=== PATIENT | female | born 1965 | race Caucasian/White ===

== ENCOUNTER → 2020-05-14 | Outpatient (CLI) | payer OTHER ==
[~2020-05-14] MED LIST: GADOBUTROL 7.5 MMOL/7.5 ML (GADAVIST) VIAL IV ONE
--- NOTE | 2020-05-14 10:10 | Diagnostic Imaging Report ---
PROCEDURE: MR imaging of the brain with and without contrast. TECHNIQUE: Multiplanar, multisequence MR imaging of the brain was performed with and without contrast. INDICATION: Dizziness. No relevant comparison. FINDINGS: There are no foci of abnormal diffusion restriction. No findings of an acute or subacute ischemic infarct. No hemorrhage or abnormal extra-axial fluid collections. No focal or generalized zones of edema. No evidence for an elevated intracerebral pressure. No suspicious white matter pathology. Few very minimal scattered subcortical white matter foci are nonspecific and may reflect very mild changes of small vessel disease. There is no cerebellopontine angle mass or mass effect. The 7th and 8th cranial nerve complexes and the semicircular canals unremarkable. There is normal enhancement of the major dural venous sinuses. The orbits and paranasal sinuses nonacute. IMPRESSION: This is an unremarkable MRI brain and IACs with and without contrast. Dictated by: Dictated on workstation # [id number]
== END ==
LOC: RAD 08:08
PROVIDERS: ATTEND Otolaryngology Otolaryngology/Facial Plastic Surgery
DX: H81.20 Vestibular neuronitis, unspecified ear (principal); E87.8 Other disorders of electrolyte and fluid balance, not elsewhere classified
CPT/HCPCS: 70553

== ENCOUNTER 2021-12-11 10:11 | Outpatient (CLI) | payer OTHER ==
[~2021-12-11] VITALS: Ht 162.6 cm; Wt 70.4 kg
[2021-12-11] MEDS ORDERED: EST30C VG (12:51)
[2021-12-11] MEDS ORDERED: ESTR1TAB50 PO (12:51)
[2021-12-11] MEDS ORDERED: ALEN70TA80 PO (12:51)
== END 2021-12-11 13:01 | disposition home or self-care (01) ==
LOC: PREOP 10:11
PROVIDERS: ATTEND Surgery
DX: Z01.818 Encounter for other preprocedural examination (principal)

== ENCOUNTER 2021-12-18 11:28 | Day surgery (SDC) | payer OTHER ==
[~2021-12-18] VITALS: Ht 162.6 cm; Wt 70.4 kg
[2021-12-18] VITALS (8 sets, daily range): BP systolic 72–118; BP diastolic 46–88
[~2021-12-18 11:28] MED LIST changes: +ALEN70TA80 PO; +EST30C VG; +ESTR1TAB50 PO; -GADOBUTROL 7.5 MMOL/7.5 ML (GADAVIST) VIAL IV ONE
[2021-12-18] MEDS ORDERED: LACTATED RINGERS 1,000 ML IV STA (11:32)
[2021-12-18] MEDS ORDERED: LIDOCAINE JELLY 2% 6 ML SYRINGE MM PRN (11:45)
--- NOTE | 2021-12-18 12:18 | Progress Note-Pre Operative ---
Pre-Operative Progress Note Date of Available H&P: Dec 18, 2021 Date H&P Reviewed: Dec 18, 2021 Time H&P Reviewed: 11:45 History & Physical: No changes noted Pre-Operative Diagnosis: dysphagia HUDSON PEÑALOZA MD Dec 18, 2021 12:18
--- NOTE | 2021-12-18 12:19 | Discharge Inst-Surgical ---
D/C Lap Instructions-ANABELA Follow Up Activity as tolerated High Fiber Diet 25g or more per day Avoid Alcohol, Caffeine, Spicy [place] and Acid foods. Drink 64 fluid oz or more of fluids per day. Symptoms to Report: Fever over 101 degree F, Nausea/Vomiting If any problems/questions: Contact your physician or go to Emergency Room HUDSON PEÑALOZA MD Dec 18, 2021 12:19
[2021-12-18] MEDS ORDERED: ONDANSETRON 4 MG (ZOFRAN) ORAL DISSOLVE TAB PO PRN (12:30)
[2021-12-18] MEDS ORDERED: ONDANSETRON 4 MG/2 ML (SDV) Z0FRAN IVP PRN (12:30)
[2021-12-18] MEDS ORDERED: PROPOFOL INJECTION 50 ML IV ONE (13:44)
[2021-12-18] MEDS ORDERED: MIDAZOLAM 2 MG/2 ML (VERSED) VIAL ONE (13:44)
--- NOTE | 2021-12-18 14:25 | Anesthesia-General Post-Op ---
MAC Patient Condition Mental Status/LOC: Same as Preop Cardiovascular: Satisfactory Nausea/Vomiting: Absent Respiratory: Satisfactory Pain: Controlled Complications: Absent Post Op Complications Complications None Follow Up Care/Instructions Patient Instructions None needed. Anesthesiology Discharge Order Discharge Order Patient is doing well, no complaints, stable vital signs, no apparent adverse anesthesia problems. No complications reported per nursing. LEVI ARRIAGA CRNA Dec 18, 2021 14:25
--- NOTE | 2021-12-18 15:10 | OPERATIVE REPORT ---
DATE OF SERVICE: 12/18/2021 ATTENDING PRIMARY CARE PHYSICIAN: Saadia Kothari DO PREOPERATIVE DIAGNOSIS: Screening colonoscopy. POSTOPERATIVE DIAGNOSES: Mild chronic stage II external and internal hemorrhoids. PROCEDURE: Colonoscopy. SURGEON: Hudson Peñaloza MD. ANESTHESIA: Monitored anesthesia care. ESTIMATED BLOOD LOSS: Minimal. FINDINGS: Mild chronic stage II external and internal hemorrhoids. DISPOSITION: The patient tolerated the procedure well. INDICATIONS: The patient is a 56-year-old female referred over to us for screening colonoscopy. She reports that her last one was approximately 5 years ago, and she does remember having polyps and were benign; however, does not recall what type of polyps these were. She does not report any major issues with diarrhea nor constipation as well as no red blood per rectum nor any dark tarry stools. She also does not report any family history of colon cancer. DESCRIPTION OF PROCEDURE: The patient was brought to the endoscopy suite, laid in left lateral decubitus position. After adequate IV pain and sedative medications and monitored anesthesia care, a digital rectal examination was performed. Chronic stage II external and internal hemorrhoids were identified, which were not actively edematous nor inflamed and no bleeding. Normal sphincter tone was felt and there were no palpable masses. The endoscope was then intubated to the anus and rectum gently insufflated. The endoscope was then advanced through the valves of [place] of the rectum with no polyps or any neoplasms identified. Through the sigmoid colon, no diverticulosis identified. We then proceeded through the remainder of the descending, transverse and ascending colon to the cecum, which were normal. There were no polyps or any neoplasms identified throughout the colon or rectum. The endoscope was then slowly withdrawn while taking a second look and suctioning of residual air with no additional findings. The patient tolerated the procedure well. We will recommend continued medical management with the incorporation of a high-fiber diet with a fiber supplement, which should equal or exceed 25 grams daily to promote soft consistency stools on a daily basis. If she is asymptomatic, she does not need another colonoscopy for another 10 years. Job ID: [id number] DocumentID: [id number] Dictated Date: 12/18/2021 14:21:55 Alumni Coordinator Date: 12/18/2021 15:09:50 Dictated By: HUDSON PEÑALOZA MD
== END 2021-12-18 15:04 | disposition home or self-care (01) ==
LOC: ENDO 11:28
PROVIDERS: ATTEND Surgery
DX: Z12.11 Encounter for screening for malignant neoplasm of colon (principal); K64.1 Second degree hemorrhoids; K64.4 Residual hemorrhoidal skin tags; Z86.010 Personal history of colon polyps